=== PATIENT | male | born 1960 ===

== ENCOUNTER 2017-03-24 22:06 | Emergency (ER) | payer SELFPAY ==
[2017-03-24 22:24] VITALS: PULSE 65; RESP 18; O2SAT 99
--- NOTE | 2017-03-24 23:12 | C.PDOC ---
History Of Present Illness 56 year old male presents to the ED with complaints of left heel pain for one week. He has not taken medication at home. Patient denies trauma, injuries, weakness, or numbness. Time Seen by Provider: 03/24/17 23:03 Chief Complaint (Nursing): Lower Extremity Problem/Injury History Per: Patient History/Exam Limitations: no limitations Onset/Duration Of Symptoms: Days (1 week) Current Symptoms Are (Timing): Still Present Recent travel outside of the [place]: No Past Medical History Reviewed: Historical Data, Nursing Documentation, Vital Signs Vital Signs: Last Vital Signs Temp 97.5 F L 03/24/17 23:35 Pulse 65 03/24/17 23:35 Resp 18 03/24/17 23:35 BP 111/64 03/24/17 23:35 Pulse Ox 99 03/25/17 20:25 Surgical History: Tonsillectomy Family History: States: Unknown Family Hx - Social History Hx Alcohol Use: No Hx Substance Use: No - Immunization History Hx Tetanus Toxoid Vaccination: No Hx Influenza Vaccination: No Hx Pneumococcal Vaccination: No Review Of Systems Constitutional: Negative for: Fever Musculoskeletal: Positive for: Foot Pain (left heel pain ) Neurological: Negative for: Weakness, Numbness Physical Exam - Physical Exam Appears: Non-toxic, No Acute Distress Skin: Warm, Dry Extremity: Normal ROM, Tenderness (left heel, skin intact. ), No Pedal Edema, Capillary Refill (good capillary refill, less than two seconds ), No Deformity, No Swelling Extremity: Bilateral: Atraumatic Pulses: Left Dorsalis Pedis: Normal, Right Dorsalis Pedis: Normal Neurological/Psych: Oriented x3, Normal Motor, Normal Sensation Gait: Steady ED Course And Treatment O2 Sat by Pulse Oximetry: 99 (RA) Progress Note: Patient was given Tylenol. Medical Decision Making Medical Decision Making: pt with left heel pain x 1 week, no trauma. no fever- most likely heel spur or plantar fasciitis Disposition Counseled Patient/Family Regarding: Diagnosis, Need For Followup, Rx Given - Disposition Referrals: Podiatry Clinic [Outside] Disposition: HOME/ ROUTINE Disposition Time: 23:11 Condition: STABLE Additional Instructions: Take naproxen as presceribed for pain. Follow up with podiatry clinic next week. Prescriptions: Naproxen 500 mg PO BID #20 tab Instructions: Heel Spur (ED) Forms: [employer] (Montenegrin) - Clinical Impression Clinical Impression: Pain of left heel - PA / [employer] / Resident Statement MD/DO has reviewed & agrees with the documentation as recorded. - Scribe Statement The provider has reviewed the documentation as recorded by the Scribkhadra Izquierdo All medical record entries made by the Kiahibkhadra were at my direction and personally dictated by me. I have reviewed the chart and agree that the record accurately reflects my personal performance of the history, physical exam, medical decision making, and the department course for this patient. I have also personally directed, reviewed, and agree with the discharge instructions and disposition.
[2017-03-25 00:03] VITALS: BP 111/64; TEMP 97.5
== END 2017-03-24 23:35 | disposition home or self-care (01) ==
LOC: C.ER 22:06
DX: M79.672 Pain in left foot (principal)

== ENCOUNTER 2017-05-06 18:24 | Emergency (ER) | payer MEDICAID ==
[2017-05-06 18:54] VITALS: BP 122/72; PULSE 90; RESP 18; TEMP 98.2; O2SAT 97
--- NOTE | 2017-05-06 19:00 | C.PDOC ---
History Of Present Illness 57 year old male presents to the ED requesting heroin and cocaine detox. Patient has not been prescreened. Patient denies suicidal/homicidal ideal and has no physical complaints at this time. Time Seen by Provider: 05/06/17 18:56 Chief Complaint (Nursing): Psychiatric Evaluation History Per: Patient History/Exam Limitations: no limitations Onset/Duration Of Symptoms: Hrs Current Symptoms Are (Timing): Still Present Suicide/Self Injury Attempted (Context): None Modifying Factor(s): Narcotics (heroin), Cocaine Associated Symptoms: denies: Suicidal Thoughts, Suicidal Plan Involuntary Hold By: None Recent travel outside of the [place]: No Additional History Per: Patient Past Medical History Reviewed: Historical Data, Nursing Documentation, Vital Signs Vital Signs: Last Vital Signs Temp 98.2 F 05/06/17 18:51 Pulse 90 05/06/17 18:51 Resp 18 05/06/17 18:51 BP 122/72 05/06/17 18:51 Pulse Ox 97 05/06/17 19:56 - Medical History PMH: Arthritis Surgical History: Tonsillectomy Family History: States: Unknown Family Hx - Social History Hx Alcohol Use: No Hx Substance Use: Yes - Immunization History Hx Tetanus Toxoid Vaccination: No Hx Influenza Vaccination: No Hx Pneumococcal Vaccination: No Review Of Systems Psych: Positive for: Other (heroin and cocaine detox ). Negative for: Suicidal ideation Physical Exam - Physical Exam Appears: Non-toxic, No Acute Distress Skin: Normal Color, Warm, Dry Head: Atraumatic, Normacephalic Eye(s): bilateral: Other (pupillary mydriasis) Oral Mucosa: Moist Neck: Supple Chest: Symmetrical, No Deformity, No Tenderness Cardiovascular: Rhythm Regular, No Murmur Respiratory: Normal Breath Sounds, No Rales, No Rhonchi, No Wheezing Extremity: Normal ROM, Capillary Refill (less than 2 seconds ) Neurological/Psych: Oriented x3, Normal Speech, Normal Cognition, Other ( coherent) Gait: Steady ED Course And Treatment O2 Sat by Pulse Oximetry: 97 (on RA) Pulse Ox Interpretation: Normal Medical Decision Making Medical Decision Making: cocaine/heroine abuse No detox avail tonight- info given for opt f/u. stable for d/c. Disposition Doctor Will See Patient In The: Office Counseled Patient/Family Regarding: Studies Performed, Diagnosis - Disposition Referrals: Alcoholics Anonymous [Outside] [facility] [Outside] [facility] [Outside] [facility] [Outside] Disposition: HOME/ ROUTINE Disposition Time: 18:59 Condition: GOOD Additional Instructions: continue to call our Crisis Dept to seek availability for Detox Programs. Instructions: Cocaine Abuse (ED), Narcotic Abuse (ED) Forms: [employer] (Kenyan) - Clinical Impression Clinical Impression: Polysubstance (including opioids) dependence, binge pattern - Scribe Statement The provider has reviewed the documentation as recorded by the Scribe (Loreto Jama) Provider Attestation: All medical record entries made by the Scribe were at my direction and personally dictated by me. I have reviewed the chart and agree that the record accurately reflects my personal performance of the history, physical exam, medical decision making, and the department course for this patient. I have also personally directed, reviewed, and agree with the discharge instructions and disposition.
== END 2017-05-06 19:07 | disposition home or self-care (01) ==
LOC: C.ER 18:24
DX: F11.20 Opioid dependence, uncomplicated (principal)